=== PATIENT | female | born 1985 | race African-American/Black ===

== ENCOUNTER 2021-11-11 23:40 | Inpatient (IN) | payer MEDICAID ==
[~2021-11-11] VITALS: Ht 172.7 cm; Wt 122.0 kg
[2021-11-12] MEDS ORDERED: PREN1TAB78 PO (01:33)
[2021-11-12] MEDS ORDERED: DEXT 5%/LR + PITOCIN 20UNITS/L 1,000 ML IV SCH ×2 (02:15→20:00)
[2021-11-12] MEDS ORDERED: NALOXONE HCL 0.4 MG/ML 1ML VIAL IM PRN (02:15)
[2021-11-12] MEDS ORDERED: METHYLERGONOVINE MALEATE 0.2 MG/ML IM PRN (02:15)
[2021-11-12] MEDS ORDERED: BUTORPHANOL TARTRATE 2 MG/ML VIAL IV PRN (02:15)
[2021-11-12] MEDS ORDERED: LIDOCAINE HCL 1% 20ML VIAL (Pyxis) INJ INFIL SCH (02:15)
[2021-11-12] MEDS ORDERED: CARBOPROST TROMETHAMINE 250 MCG/ML AMPUL IM PRN (02:15)
[2021-11-12] MEDS ORDERED: RHO(D) IMMUNE GLOBULIN 300 MCG/SYR IM ONE (02:15)
[2021-11-12] MEDS ORDERED: MISOPROSTOL 200MCG TABLET VG SCH (02:30)
[2021-11-12] MEDS: LACTATED RINGERS 1,000 ML IV SCH ×3 (02:49→11:12)
[2021-11-12] MEDS: CLINDAMYCIN 900 MG PREMIX 50 ML IV SCH ×2 (02:54→11:13)
[2021-11-12] MEDS ORDERED: MINERAL OIL 30ML BOTTLE TOP SCH (03:00)
[2021-11-12 03:28] LABS: BASOPHILS % 0.2 % (0.0-2.0); EOSINOPHILS % 1.2 % (0.0-5.0); HEMATOCRIT. 33.7 % (36.0-48.0); HEMOGLOBIN. 11.1 g/dL (12.0-16.0); LYMPHOCYTES % 16.5 % (20.0-50.0); MEAN CORPUSCULAR HEMOGLOBIN 27.6 pg (28.0-32.0); MEAN CORPUSCULAR VOLUME 83.8 fL (81.0-99.0); MEAN PLATELET VOLUME 9.4 fl (7.4-10.4); NEUTROPHILS % 71.1 % (40.0-76.0); PLATELET 167 x1000/uL (130-400); RED BLOOD CELL COUNT 4.02 mill/uL (4.2-5.4); RED CELL DISTRIBUTION WIDTH 14.2 % (11.6-14.6)
[2021-11-12 03:29] LABS: CLARITY URINE CLOUDY (CLEAR); COLOR URINE YELLOW (YELLOW); KETONES URINE TRACE (NEGATIVE); LEUKOCYTE ESTERASE URINE 1+ (NEGATIVE); NITRITE URINE NEGATIVE (NEGATIVE); OCCULT BLOOD URINE 2+ (NEGATIVE); PROTEIN URINE TRACE (NEGATIVE); SPECIFIC GRAVITY URINE 1.026 (1.005-1.030)
[2021-11-12 03:39] LABS: *BARBITURATES SCREEN URINE NEGATIVE (NEGATIVE)
[2021-11-12 03:40] LABS: *AMPHETAMINES SCREEN URINE NEGATIVE (NEGATIVE); *BENZODIAZEPINES SCREEN URINE NEGATIVE (NEGATIVE); *COCAINE SCREEN URINE NEGATIVE (NEGATIVE); CANNABINOID URINE SCREEN NEGATIVE (NEGATIVE); METHADONE URINE SCREEN NEGATIVE (NEGATIVE); OPIATES URINE SCREEN NEGATIVE (NEGATIVE); PHENCYCLIDINE URINE SCREEN NEGATIVE (NEGATIVE)
[2021-11-12 03:50] LABS: INR 0.9; PARTIAL THROMBOPLASTIN TIME 27.3 sec (23.4-31.0); PROTHROMBIN TIME 10.1 sec (9.6-11.0)
[2021-11-12 04:15] LABS: HEPATITIS B SURFACE ANTIGEN NEGATIVE
[2021-11-12] MEDS ORDERED: EPHEDRINE SULFATE 50MG/ML VIAL ONE (08:22)
[2021-11-12] MEDS ORDERED: LIDOCAINE HCL 2%/EPINEPHRINE 1:100,000 20 ML VIAL INFIL ONE (08:22)
[2021-11-12] MEDS ORDERED: ROPIVACAINE HCL/PF EPIDURAL 200 ML EPI SCH (11:00)
[2021-11-12] MEDS ORDERED: FENTANYL CITRATE/PF 50MCG/ML 2ML VIAL ONE (11:09)
[2021-11-12] MEDS ORDERED: ONDANSETRON HCL 4MG/2ML INJ IV PRN (12:30)
[2021-11-12] MEDS ORDERED: HEMORRHOIDAL SUPP PR PRN (19:30)
[2021-11-12] MEDS ORDERED: ACETAMINOPHEN WITH CODEINE 300/30MG TABLET PO PRN (19:30)
[2021-11-12] MEDS ORDERED: DIPHENHYDRAMINE 25MG CAPSULE PO PRN (19:30)
[2021-11-12] MEDS ORDERED: IBUPROFEN 400MG TABLET PO PRN (19:30)
[2021-11-12] MEDS ORDERED: RHO(D) IMMUNE GLOBULIN 300 MCG/SYR IM PRN (19:30)
[2021-11-12] MEDS ORDERED: BISACODYL 10MG SUPP PR PRN (19:30)
[2021-11-12] MEDS ORDERED: LANOLIN OINT 7GM TUBE TOP PRN (19:30)
[2021-11-12] MEDS ORDERED: GLYCERIN/WITCH HAZEL LEAF MEDICATED PAD TOP PRN (19:30)
[2021-11-12] MEDS: IBUPROFEN 800MG TABLET PO PRN (20:16)
[2021-11-12 21:00] VITALS: BP 133/81
[2021-11-12] MEDS ORDERED: NALOXONE HCL 0.4MG/ML VIAL IV PRN (21:00)
[2021-11-12] MEDS: MAGNESIUM/ALUMINUM HYDROXIDE/SIMETHICONE 30ML UDC PO SCH (21:27)
[2021-11-12] MEDS: SIMETHICONE 80MG TABLET CHEW PO SCH (21:27)
[2021-11-12] MEDS: DOCUSATE SODIUM 100MG CAPSULE PO SCH (21:27)
[2021-11-13 04:00] VITALS: BP 113/76
[2021-11-13 06:38] LABS: BASOPHILS % 0.3 % (0.0-2.0); EOSINOPHILS % 0.8 % (0.0-5.0); HEMATOCRIT. 31.6 % (36.0-48.0); HEMOGLOBIN. 10.6 g/dL (12.0-16.0); MEAN CORPUSCULAR HEMOGLOBIN 27.7 pg (28.0-32.0); MEAN CORPUSCULAR VOLUME 82.4 fL (81.0-99.0); MONOCYTES % 10.3 % (2.0-8.0); NEUTROPHILS % 76.6 % (40.0-76.0); PLATELET 145 x1000/uL (130-400); RED BLOOD CELL COUNT 3.84 mill/uL (4.2-5.4); RED CELL DISTRIBUTION WIDTH 14.5 % (11.6-14.6)
[2021-11-13] MEDS: MAGNESIUM/ALUMINUM HYDROXIDE/SIMETHICONE 30ML UDC PO SCH ×4 (07:30→21:38)
[2021-11-13] MEDS: FERROUS SULFATE 325MG TABLET PO SCH ×3 (07:30→18:23)
[2021-11-13 08:00] VITALS: BP 124/63
[2021-11-13] MEDS: SIMETHICONE 80MG TABLET CHEW PO SCH ×4 (08:00→21:38)
[2021-11-13] MEDS: PRENATAL VIT/FE FUMARATE/FA TABLET PO SCH (08:27)
[2021-11-13 15:48] VITALS: BP 110/45
[2021-11-13] MEDS: IBUPROFEN 800MG TABLET PO PRN (18:23)
[2021-11-13] MEDS: DOCUSATE SODIUM 100MG CAPSULE PO SCH (21:38)
[2021-11-13 22:00] VITALS: BP 128/55
[2021-11-14 06:00] VITALS: BP 112/64
[2021-11-14 07:30] VITALS: BP 115/56
[2021-11-14] MEDS: SIMETHICONE 80MG TABLET CHEW PO SCH (08:17)
[2021-11-14] MEDS: MAGNESIUM/ALUMINUM HYDROXIDE/SIMETHICONE 30ML UDC PO SCH (08:17)
[2021-11-14] MEDS: FERROUS SULFATE 325MG TABLET PO SCH (08:18)
[2021-11-14] MEDS: PRENATAL VIT/FE FUMARATE/FA TABLET PO SCH (08:18)
== END 2021-11-14 10:26 | disposition home or self-care (01) | DRG 560 ==
LOC: OBSVTOIN 23:40 → 8 EST LDRP 23:40 → 8EST 11-12 20:48
PROVIDERS: ADMIT Specialist; ATTEND Specialist
PROC: 10D07Z6 Extraction of Products of Conception, Vacuum, Via Natural or Artificial Opening (ICD-10-PCS; principal; 2021-11-13)
PROC: 3E0R3BZ Introduction of Anesthetic Agent into Spinal Canal, Percutaneous Approach (ICD-10-PCS; 2021-11-13)
PROC: 00HU33Z Insertion of Infusion Device into Spinal Canal, Percutaneous Approach (ICD-10-PCS; 2021-11-13)
DX: O80 Encounter for full-term uncomplicated delivery (principal); Z37.0 Single live birth; Z20.822 Contact with and (suspected) exposure to COVID-19; Z3A.38 38 weeks gestation of pregnancy
CPT/HCPCS: 36415; 76805; 76815; 76818; 80305; 81003; 85025; 86592; 86703; 86762; 86850; 86886; 86900; 87340; 87426; 90384; 99281; G0378; J0595; J2590; J2795; J3010; J3490; J7120; A4315; J2791

== ENCOUNTER → 2022-01-02 | Outpatient (CLI) | payer MEDICAID ==
[~2022-01-02] MED LIST: PREN1TAB78 PO
== END | disposition home or self-care (01) ==
LOC: LAB 09:38
PROVIDERS: ATTEND Specialist
DX: Z01.812 Encounter for preprocedural laboratory examination (principal)
CPT/HCPCS: 87426

== ENCOUNTER → 2022-01-03 | Day surgery (SDC) | payer MEDICAID ==
[~2022-01-03] VITALS: Ht 170.2 cm; Wt 120.2 kg
[~2022-01-03] MED LIST changes: +ACETAMINOPHEN 500MG TABLET ONE; +BUPIVACAINE HCL/PF 0.25% (2.5MG/ML) 10ML ONE; +CLINDAMYCIN 900 MG PREMIX 50 ML IV ONE; +DEXAMETHASONE 4MG/ML 1ML VIAL ONE; +DEXT 5%/0.45% NACL KCL 20MEQ/L 1,000 ML IV SCH; +FENTANYL CITRATE/PF 50MCG/ML 2ML VIAL IV PRN; +FENTANYL CITRATE/PF 50MCG/ML 2ML VIAL ONE; +GLYCOPYRROLATE 0.2 MG/ML 2ML VIAL ONE; +KETOROLAC 30MG/ML VIAL IM NR; +KETOROLAC 30MG/ML VIAL ONE; +LACTATED RINGERS 1,000 ML IV SCH; +LIDOCAINE HCL 1% 10 MG/ML 10ML VIAL ONE; +METOCLOPRAMIDE HCL 10MG/2ML VIAL ONE; +MIDAZOLAM HCL 2 MG/2 ML VIAL ONE; +NEOSTIGMINE METHYLSULFATE 1MG/ML 10 ML VIAL ONE; +ONDANSETRON HCL 4MG/2ML INJ IV PRN; +ONDANSETRON HCL 4MG/2ML INJ ONE; +PHENYLEPHRINE HCL 10 MG/ML 1ML (IV VIAL) IV ONE; +PROPOFOL 200MG/20ML VIAL IV ONE; +SKIN ADHESIVE 0.7 GM EA TOP ONE; +SODIUM CHLORIDE 0.9% 10ML VIAL ONE; +SUCCINYLCHOLINE CHLORIDE 200MG/10ML IV ONE; +VECURONIUM BROMIDE 10 MG/VIAL IV ONE
[2022-01-03 08:52] LABS: UCG SCREEN NEGATIVE
[2022-01-03 12:57] VITALS: BP 127/85
== END | disposition home or self-care (01) ==
LOC: OR 08:02
PROVIDERS: ATTEND Specialist
DX: Z30.2 Encounter for sterilization (principal); E66.9 Obesity, unspecified; K21.9 Gastro-esophageal reflux disease without esophagitis; R87.610 Atypical squamous cells of undetermined significance on cytologic smear of cervix (ASC-US); Z79.899 Other long term (current) drug therapy; Z88.0 Allergy status to penicillin; Z20.822 Contact with and (suspected) exposure to COVID-19; Z98.890 Other specified postprocedural states
CPT/HCPCS: 58661; 81025; 88302; J0330; J1100; J1885; J2250; J2370; J2405; J2704; J2710; J2765; J3010; J3490